=== PATIENT | female | born 2005 | race African-American/Black ===

== ENCOUNTER 2023-03-17 19:14 | Emergency (ER) | payer MEDICAID ==
[~2023-03-17] VITALS: Ht 177.8 cm; Wt 70.0 kg
[2023-03-17 20:00] VITALS: BP 118/73
[2023-03-17] MEDS ORDERED: LEVETIRACETAM 1000MG PREMIX 100 ML IV ONE (20:00)
== END 2023-03-17 21:10 | disposition left against medical advice (07) ==
LOC: ER 19:14
DX: R56.9 Unspecified convulsions (principal); R51.9 Headache, unspecified
CPT/HCPCS: 96365; 99284; J1953